=== PATIENT | male | born 1965 | race African-American/Black ===

== ENCOUNTER 2019-01-14 17:30 | Inpatient (IN) ==
[2019-01-14] MEDS ORDERED: METOPROLOL TARTRATE 5 MG/5 ML VIAL IV STA (18:07)
[2019-01-14] MEDS ORDERED: ONDANSETRON 4 MG/2 ML VIAL IV STA (18:07)
[2019-01-14] MEDS ORDERED: FUROSEMIDE 100 MG/10 ML VIAL IV STA (18:07)
[2019-01-14] MEDS ORDERED: MORPHINE 4 MG/1 ML VIAL IV STA (18:07)
[2019-01-14 18:18] LABS: Basophils % 0.5 % (0.0-0.8); Eosinophils # 0.2 10*3/uL (0.0-0.87); Eosinophils % 2.4 % (0.00-10.9); Hematocrit 41.9 VOL% (42.0-52.0); Hemoglobin 12.5 GM/DL (14.0-18.0); Immature Granulocytes % 0.5 %; Immature Granulocytes Absolute 0.03 #; Lymphocytes % 15.6 % (21.2-54.2); Mean Corpuscular HGB Conc 29.8 GM/DL (32-36); Mean Corpuscular Volume 84.3 FL (87-102); Monocytes % 7.4 % (1.7-12.7); Neutrophils % 73.6 % (38.7-73.9); Platelet Count 228 T/CUMM (130-400); Red Blood Count 4.97 MC/CUMM (3.8-5.5); White Blood Count 6.6 T/CUMM (4-12)
[2019-01-14 18:33] LABS: PT Patient Result 10.7 SECS
[2019-01-14 18:40] LABS: Albumin 3.4 G/DL (3.4-5.0); Bilirubin,Total 0.8 MG/DL (0.2-1.0); Calcium 8.9 MG/DL (8.5-10.1); Osmolality,Calculated 281.3 MOS/KG (273-304); Total Protein 7.6 G/DL (6.4-8.3)
[2019-01-14] MEDS ORDERED: POTASSIUM CHLORIDE 20 MEQ TABLET PO STA (19:01)
[2019-01-14 19:02] LABS: Apearance,Urine CLEAR (Clear); Bilirubin,Urine Negative (Negative); Blood, Urine Negative (Negative); Glucose,Urine (UA) Negative (Negative); Hyaline Casts,Urine 3 /LPF (0-3); Ketones,Urine Negative (Negative); Mucus,Urine Occasional /LPF (Occasional); Nitrite,Urine Negative (Negative); Protein,Urine Negative; RBC,Urine 3 /HPF (0-4); Squamous Epithelial Cell,Urine Occasional /HPF (0-10); Urine Color Yellow (Yellow); Urine Specific Gravity 1.026 (1.001-1.035); Urine Urobilinogen < 2.0 EU/DL (0.2-1.0); WBC,Urine 2 /HPF (0-6)
[2019-01-14 19:05] LABS: Barbiturates Screen,Urine Negative (Negative); Benzodiazepines Screen,Urine Negative (Negative); Cannabinoid Screen,Urine Negative (Negative); Opiate Screen,Urine Negative (Negative); Phencyclidine Screen,Urine Negative (Negative)
[2019-01-14] MEDS ORDERED: MORPHINE 4 MG/1 ML VIAL IV PRN (23:13)
[2019-01-14] MEDS ORDERED: diphenhydrAMINE CAP 25 MG CAPSULE PO PRN (23:13)
[2019-01-14] MEDS ORDERED: BISACODYL 5 MG TABLET PO PRN (23:13)
[2019-01-14] MEDS ORDERED: ACETAMINOPHEN 325 MG TABLET PO PRN (23:13)
[2019-01-14] MEDS ORDERED: NICOTINE 21 MG/24 HR PATCH TRANSDERM PRN (23:13)
[2019-01-14] MEDS ORDERED: ONDANSETRON 4 MG/2 ML VIAL IV PRN (23:13)
[2019-01-14] MEDS ORDERED: guaiFENesin/DM ER 600-30 MG TABLET PO PRN (23:13)
[2019-01-15] MEDS ORDERED: CETIRIZINE 10 MG TABLET PO PRN (01:37)
[2019-01-15] MEDS: TAMSULOSIN 0.4 MG CAPSULE PO SCH ×2 (01:54→21:07)
[2019-01-15] MEDS: FLUoxetine 20 MG CAPSULE PO SCH ×2 (01:54→21:08)
[2019-01-15] MEDS: METOPROLOL SUCCINATE XL 100 MG TABLET PO SCH ×2 (01:54→21:08)
[2019-01-15 05:15] LABS: Albumin 2.9 G/DL (3.4-5.0); Bilirubin,Total 1.2 MG/DL (0.2-1.0); Calcium 8.9 MG/DL (8.5-10.1); Osmolality,Calculated 282.1 MOS/KG (273-304); Total Protein 7.1 G/DL (6.4-8.3)
[2019-01-15] MEDS: POTASSIUM CHLORIDE 20 MEQ TABLET PO PRN ×6 (06:31→21:07)
[2019-01-15] MEDS: LOSARTAN 50 MG TABLET PO SCH (09:33)
[2019-01-15] MEDS: FUROSEMIDE 40 MG/4 ML VIAL IV SCH ×2 (09:34→16:46)
[2019-01-15] MEDS: PANTOPRAZOLE 40 MG TABLET PO SCH (09:34)
[2019-01-15] MEDS: CHLORTHALIDONE 25 MG TABLET PO SCH (09:34)
[2019-01-15] MEDS: FAMOTIDINE 20 MG TABLET PO SCH (09:34)
[2019-01-15] MEDS: ASPIRIN EC 81 MG TABLET PO SCH (09:34)
[2019-01-16 04:03] LABS: Calcium 8.9 MG/DL (8.5-10.1); Osmolality,Calculated 279.4 MOS/KG (273-304)
[2019-01-16] MEDS: POTASSIUM CHLORIDE 20 MEQ TABLET PO PRN ×7 (05:07→23:40)
[2019-01-16] MEDS: FAMOTIDINE 20 MG TABLET PO SCH (08:43)
[2019-01-16] MEDS: CHLORTHALIDONE 25 MG TABLET PO SCH (08:43)
[2019-01-16] MEDS: LOSARTAN 50 MG TABLET PO SCH (08:43)
[2019-01-16] MEDS: ASPIRIN EC 81 MG TABLET PO SCH (08:43)
[2019-01-16] MEDS: FUROSEMIDE 40 MG/4 ML VIAL IV SCH ×2 (08:44→15:30)
[2019-01-16] MEDS: PANTOPRAZOLE 40 MG TABLET PO SCH (08:44)
[2019-01-16] MEDS ORDERED: SPIRONOLACTONE 25 MG TABLET PO SCH (09:00)
[2019-01-16] MEDS: POTASSIUM CHLORIDE RIDER 10 MEQ in PREMIX 1 EACH IV SCH ×2 (15:02→15:03)
[2019-01-16] MEDS: FLUoxetine 20 MG CAPSULE PO SCH (21:41)
[2019-01-16] MEDS: TAMSULOSIN 0.4 MG CAPSULE PO SCH (21:43)
[2019-01-16] MEDS: METOPROLOL SUCCINATE XL 100 MG TABLET PO SCH (21:43)
[2019-01-17] MEDS: POTASSIUM CHLORIDE 20 MEQ TABLET PO PRN ×6 (01:56→21:43)
[2019-01-17 05:59] LABS: Calcium 9.1 MG/DL (8.5-10.1); Osmolality,Calculated 273.8 MOS/KG (273-304)
[2019-01-17] MEDS: FAMOTIDINE 20 MG TABLET PO SCH (08:39)
[2019-01-17] MEDS: FUROSEMIDE 40 MG/4 ML VIAL IV SCH (08:40)
[2019-01-17] MEDS: ASPIRIN EC 81 MG TABLET PO SCH (08:40)
[2019-01-17] MEDS: LOSARTAN 50 MG TABLET PO SCH (08:40)
[2019-01-17] MEDS: PANTOPRAZOLE 40 MG TABLET PO SCH (08:40)
[2019-01-17] MEDS: POTASSIUM CHLORIDE 20 MEQ TABLET PO SCH (13:59)
[2019-01-17] MEDS: SPIRONOLACTONE 25 MG TABLET PO SCH (14:00)
[2019-01-17] MEDS: FUROSEMIDE 80 MG TABLET PO SCH (15:19)
[2019-01-17] MEDS: FLUoxetine 20 MG CAPSULE PO SCH (21:28)
[2019-01-17] MEDS: TAMSULOSIN 0.4 MG CAPSULE PO SCH (21:28)
[2019-01-17] MEDS: METOPROLOL SUCCINATE XL 100 MG TABLET PO SCH (21:28)
[2019-01-18 06:00] LABS: Calcium 9.3 MG/DL (8.5-10.1); Osmolality,Calculated 278.7 MOS/KG (273-304)
[2019-01-18] MEDS: LOSARTAN 50 MG TABLET PO SCH (09:08)
[2019-01-18] MEDS: PANTOPRAZOLE 40 MG TABLET PO SCH (09:08)
[2019-01-18] MEDS: FUROSEMIDE 80 MG TABLET PO SCH ×2 (09:09→16:34)
[2019-01-18] MEDS: POTASSIUM CHLORIDE 20 MEQ TABLET PO SCH (09:09)
[2019-01-18] MEDS: ASPIRIN EC 81 MG TABLET PO SCH (09:09)
[2019-01-18] MEDS: SPIRONOLACTONE 25 MG TABLET PO SCH (09:09)
[2019-01-18] MEDS: FAMOTIDINE 20 MG TABLET PO SCH (09:09)
[2019-01-18] MEDS ORDERED: ceFAZolin 2,000 MG in SYRINGE 1 EACH IV SCH (13:00)
[2019-01-18] MEDS: ENOXAPARIN 60 MG/0.6 ML SYRINGE SUBCUT SCH (13:46)
[2019-01-18] MEDS ORDERED: TUBERCULIN SKIN TEST 0.1 ML SYRINGE INTRADERM ONE (16:23)
[2019-01-18] MEDS: TAMSULOSIN 0.4 MG CAPSULE PO SCH (21:26)
[2019-01-18] MEDS: METOPROLOL SUCCINATE XL 100 MG TABLET PO SCH (21:27)
[2019-01-18] MEDS: FLUoxetine 20 MG CAPSULE PO SCH (21:27)
[2019-01-19] MEDS ORDERED: ceFAZolin 2,000 MG in SYRINGE 1 EACH IV SCH
[2019-01-19] MEDS: FAMOTIDINE 20 MG TABLET PO SCH (09:01)
[2019-01-19] MEDS: FUROSEMIDE 80 MG TABLET PO SCH ×2 (09:02→16:20)
[2019-01-19] MEDS: LOSARTAN 50 MG TABLET PO SCH (09:02)
[2019-01-19] MEDS: SPIRONOLACTONE 25 MG TABLET PO SCH (09:02)
[2019-01-19] MEDS: ASPIRIN EC 81 MG TABLET PO SCH (09:02)
[2019-01-19] MEDS: PANTOPRAZOLE 40 MG TABLET PO SCH (09:02)
[2019-01-19] MEDS: POTASSIUM CHLORIDE 20 MEQ TABLET PO SCH (09:03)
[2019-01-19] MEDS: ENOXAPARIN 60 MG/0.6 ML SYRINGE SUBCUT SCH (11:48)
[2019-01-19] MEDS: METOPROLOL SUCCINATE XL 100 MG TABLET PO SCH (22:20)
[2019-01-19] MEDS: FLUoxetine 20 MG CAPSULE PO SCH (22:20)
[2019-01-19] MEDS: TAMSULOSIN 0.4 MG CAPSULE PO SCH (22:20)
[2019-01-19 23:21] LABS: Troponin I < 0.015 NG/ML (0.00-0.045)
[2019-01-20] MEDS: PANTOPRAZOLE 40 MG TABLET PO SCH (08:38)
[2019-01-20] MEDS: FUROSEMIDE 80 MG TABLET PO SCH ×2 (08:38→16:48)
[2019-01-20] MEDS: FAMOTIDINE 20 MG TABLET PO SCH (08:38)
[2019-01-20] MEDS: ASPIRIN EC 81 MG TABLET PO SCH (08:38)
[2019-01-20] MEDS: LOSARTAN 50 MG TABLET PO SCH (08:38)
[2019-01-20] MEDS: ENOXAPARIN 40 MG/0.4 ML SYRINGE SUBCUT SCH ×2 (08:38→21:26)
[2019-01-20] MEDS: POTASSIUM CHLORIDE 20 MEQ TABLET PO SCH (08:38)
[2019-01-20] MEDS: SPIRONOLACTONE 25 MG TABLET PO SCH (08:38)
[2019-01-20] MEDS ORDERED: POLYETHYLENE GLYCOL POWDER 255 GM BOTTLE PO ONE (10:30)
[2019-01-20] MEDS: FLUoxetine 20 MG CAPSULE PO SCH (21:27)
[2019-01-20] MEDS: METOPROLOL SUCCINATE XL 100 MG TABLET PO SCH (21:27)
[2019-01-20] MEDS: TAMSULOSIN 0.4 MG CAPSULE PO SCH (21:27)
[2019-01-21] MEDS ORDERED: FUROSEMIDE 40 MG/4 ML VIAL IV ONE (08:19)
[2019-01-21] MEDS: FAMOTIDINE 20 MG TABLET PO SCH (08:58)
[2019-01-21] MEDS: SPIRONOLACTONE 25 MG TABLET PO SCH (08:58)
[2019-01-21] MEDS: ASPIRIN EC 81 MG TABLET PO SCH (08:58)
[2019-01-21] MEDS: POTASSIUM CHLORIDE 20 MEQ TABLET PO SCH (08:59)
[2019-01-21] MEDS: LOSARTAN 50 MG TABLET PO SCH (08:59)
[2019-01-21] MEDS: ENOXAPARIN 40 MG/0.4 ML SYRINGE SUBCUT SCH ×2 (08:59→20:45)
[2019-01-21] MEDS: PANTOPRAZOLE 40 MG TABLET PO SCH (08:59)
[2019-01-21] MEDS: FUROSEMIDE 80 MG TABLET PO SCH ×2 (08:59→16:53)
[2019-01-21] MEDS: TAMSULOSIN 0.4 MG CAPSULE PO SCH (20:45)
[2019-01-21] MEDS: FLUoxetine 20 MG CAPSULE PO SCH (20:45)
[2019-01-21] MEDS: METOPROLOL SUCCINATE XL 100 MG TABLET PO SCH (20:45)
[2019-01-22] MEDS: ASPIRIN EC 81 MG TABLET PO SCH (08:44)
[2019-01-22] MEDS: FAMOTIDINE 20 MG TABLET PO SCH (08:44)
[2019-01-22] MEDS: FUROSEMIDE 80 MG TABLET PO SCH ×2 (08:45→16:45)
[2019-01-22] MEDS: ENOXAPARIN 40 MG/0.4 ML SYRINGE SUBCUT SCH (08:45)
[2019-01-22] MEDS: LOSARTAN 50 MG TABLET PO SCH (08:45)
[2019-01-22] MEDS: SPIRONOLACTONE 25 MG TABLET PO SCH (08:45)
[2019-01-22] MEDS: POTASSIUM CHLORIDE 20 MEQ TABLET PO SCH (08:45)
[2019-01-22] MEDS: PANTOPRAZOLE 40 MG TABLET PO SCH (08:45)
[2019-01-22 12:22] VITALS: BP 110/71
== END 2019-01-22 16:47 | DRG 292 ==
LOC: EDBD → EDUNIT# → N.EDINP 17:30 → N.ED 17:30 → SUATTDRO 22:56 → N.TELES 01-15 00:15
PROVIDERS: ATTEND Internal Medicine

== ENCOUNTER 2021-02-24 19:14 | Inpatient (IN) ==
[2021-02-24 22:49] LABS: Basophils % 0.4 % (0.0-0.8); Eosinophils # 0.3 10*3/uL (0.0-0.87); Eosinophils % 3.6 % (0.00-10.9); Hematocrit 37.9 VOL% (42.0-52.0); Hemoglobin 11.4 GM/DL (14.0-18.0); Immature Granulocytes % 0.3 %; Immature Granulocytes Absolute 0.02 #; Lymphocytes # 1.3 10*3/uL (1.4-4.0); Lymphocytes % 18.1 % (21.2-54.2); Mean Corpuscular HGB Conc 30.1 GM/DL (32-36); Mean Corpuscular Volume 87.3 FL (87-102); Mean Platelet Volume 12.1 FL (9.6-12.0); Monocytes % 7.8 % (1.7-12.7); Neutrophils % 69.8 % (38.7-73.9); Platelet Count 203 T/CUMM (130-400); Red Blood Count 4.34 MC/CUMM (3.8-5.5); Red Cell Distribution Width 14.5 % (9.3-17.3); White Blood Count 7.2 T/CUMM (4-12)
[2021-02-24] MEDS ORDERED: SODIUM CHLORIDE 0.9% 1,000 ML IV SCH (23:00)
[2021-02-24] MEDS ORDERED: cefTRIAXone 1,000 MG in SODIUM CHLORIDE 0.9% 100 ML IV SCH (23:00)
[2021-02-24 23:01] LABS: Calcium 8.9 MG/DL (8.5-10.1); Potassium 3.6 MMOL/L (3.5-5.1)
[2021-02-24] MEDS ORDERED: POTASSIUM CHLORIDE 20 MEQ TABLET PO ONE (23:03)
[2021-02-25] MEDS ORDERED: AZITHROMYCIN INJ 500 MG in SODIUM CHLORIDE 0.9% 250 ML IV SCH
[2021-02-25] MEDS ORDERED: ACETAMINOPHEN 325 MG TABLET PO PRN (00:08)
[2021-02-25] MEDS ORDERED: diphenhydrAMINE CAP 25 MG CAPSULE PO PRN (00:08)
[2021-02-25] MEDS ORDERED: DEXTROSE 50% 25 GM/50 ML VIAL IV PRN (00:08)
[2021-02-25] MEDS ORDERED: ZALEPLON 5 MG CAPSULE PO PRN (00:08)
[2021-02-25] MEDS ORDERED: GLUCAGON 1 MG VIAL IM PRN (00:08)
[2021-02-25] MEDS ORDERED: hydrALAZINE 20 MG/1 ML VIAL IV PRN (00:08)
[2021-02-25] MEDS ORDERED: guaiFENesin/DM ER 600-30 MG TABLET PO PRN (00:08)
[2021-02-25] MEDS ORDERED: NICOTINE 21 MG/24 HR PATCH TRANSDERM PRN (00:08)
[2021-02-25] MEDS ORDERED: SODIUM CHLORIDE 0.9% 500 ML IV ONE (00:30)
[2021-02-25 01:19] LABS: Bilirubin,Urine Negative (Negative); Blood, Urine Negative (Negative); Glucose,Urine (UA) Negative (Negative); Ketones,Urine Negative (Negative); Mucus,Urine Occasional /LPF (Occasional); Nitrite,Urine Negative (Negative); Protein,Urine Negative; RBC,Urine 1 /HPF (0-4); Squamous Epithelial Cell,Urine Occasional /HPF (0-10); Urine Appearance CLEAR (Clear); Urine Color Yellow (Yellow); Urine Specific Gravity 1.012 (1.001-1.035); Urine Urobilinogen < 2.0 EU/DL (0.2-1.0)
[2021-02-25] MEDS: ALBUTEROL 2.5 MG/3 ML NEB RESP TX SCH ×4 (02:25→19:16)
[2021-02-25 05:35] LABS: ABG Base Excess 4.3 MMOL/L (-2.5-2.5); ABG HCO3 30.2 MMOL/L (20-26); ABG Oxygen Saturation 98.3 % (95-100); ABG PCO2 49.6 MM HG (35-48); ABG PH 7.402 (7.35-7.45); ABG PO2 118.8 MM HG (80-95); ABG TCO2 31.7 MMOL/L (23-27)
[2021-02-25 05:37] LABS: Basophils % 0.4 % (0.0-0.8); Eosinophils # 0.2 10*3/uL (0.0-0.87); Eosinophils % 3.6 % (0.00-10.9); Hematocrit 36.7 VOL% (42.0-52.0); Hemoglobin 11.7 GM/DL (14.0-18.0); Immature Granulocytes % 0.1 %; Immature Granulocytes Absolute 0.01 #; Lymphocytes # 1.2 10*3/uL (1.4-4.0); Lymphocytes % 17.3 % (21.2-54.2); Mean Corpuscular HGB Conc 31.9 GM/DL (32-36); Mean Platelet Volume 11.9 FL (9.6-12.0); Monocytes % 8.4 % (1.7-12.7); Neutrophils % 70.2 % (38.7-73.9); Platelet Count 207 T/CUMM (130-400); Red Blood Count 4.37 MC/CUMM (3.8-5.5); Red Cell Distribution Width 14.6 % (9.3-17.3); White Blood Count 6.7 T/CUMM (4-12)
[2021-02-25 05:59] LABS: Calcium 8.6 MG/DL (8.5-10.1); Osmolality,Calculated 301.3 MOS/KG (273-304); Potassium 3.2 MMOL/L (3.5-5.1)
[2021-02-25] MEDS: GABAPENTIN 100 MG CAPSULE PO SCH ×3 (09:30→21:13)
[2021-02-25] MEDS: CETIRIZINE 10 MG TABLET PO SCH (09:31)
[2021-02-25] MEDS: ASPIRIN EC 81 MG TABLET PO SCH (09:31)
[2021-02-25] MEDS: PANTOPRAZOLE 40 MG TABLET PO SCH (09:32)
[2021-02-25] MEDS: BISACODYL 5 MG TABLET PO SCH (09:32)
[2021-02-25] MEDS: FAMOTIDINE 20 MG TABLET PO SCH (09:33)
[2021-02-25] MEDS: ENOXAPARIN 40 MG/0.4 ML SYRINGE SUBCUT SCH (09:35)
[2021-02-25] MEDS: SODIUM CHLORIDE 0.9% 1,000 ML IV SCH (10:45)
[2021-02-25] MEDS: ONDANSETRON 4 MG/2 ML VIAL IV PRN (19:31)
[2021-02-25] MEDS ORDERED: TAMSULOSIN 0.4 MG CAPSULE PO SCH (21:00)
[2021-02-25] MEDS: FLUoxetine 20 MG CAPSULE PO SCH (21:13)
[2021-02-26] MEDS: ALBUTEROL 2.5 MG/3 ML NEB RESP TX SCH ×4 (00:31→19:40)
[2021-02-26] MEDS: SODIUM CHLORIDE 0.9% 1,000 ML IV SCH ×3 (01:16→16:44)
[2021-02-26] MEDS: ONDANSETRON 4 MG/2 ML VIAL IV PRN ×2 (03:41→19:59)
[2021-02-26 05:51] LABS: Basophils % 0.5 % (0.0-0.8); Eosinophils # 0.3 10*3/uL (0.0-0.87); Eosinophils % 4.5 % (0.00-10.9); Hematocrit 36.4 VOL% (42.0-52.0); Hemoglobin 10.9 GM/DL (14.0-18.0); Immature Granulocytes % 0.3 %; Immature Granulocytes Absolute 0.02 #; Lymphocytes % 17.1 % (21.2-54.2); Mean Corpuscular HGB Conc 29.9 GM/DL (32-36); Mean Corpuscular Volume 87.7 FL (87-102); Monocytes % 8.8 % (1.7-12.7); Neutrophils % 68.8 % (38.7-73.9); Platelet Count 196 T/CUMM (130-400); Red Blood Count 4.15 MC/CUMM (3.8-5.5); Red Cell Distribution Width 14.6 % (9.3-17.3)
[2021-02-26 06:10] LABS: Calcium 8.8 MG/DL (8.5-10.1); Osmolality,Calculated 292.1 MOS/KG (273-304); Potassium 3.9 MMOL/L (3.5-5.1)
[2021-02-26] MEDS: PANTOPRAZOLE 40 MG TABLET PO SCH (09:14)
[2021-02-26] MEDS: BISACODYL 5 MG TABLET PO SCH (09:14)
[2021-02-26] MEDS: FAMOTIDINE 20 MG TABLET PO SCH (09:14)
[2021-02-26] MEDS: CETIRIZINE 10 MG TABLET PO SCH (09:14)
[2021-02-26] MEDS: ENOXAPARIN 40 MG/0.4 ML SYRINGE SUBCUT SCH (09:15)
[2021-02-26] MEDS: GABAPENTIN 100 MG CAPSULE PO SCH ×3 (09:15→21:34)
[2021-02-26] MEDS: ASPIRIN EC 81 MG TABLET PO SCH (09:15)
[2021-02-26] MEDS: VANCOMYCIN INJ 2,000 MG in SODIUM CHLORIDE 0.9% 500 ML IV SCH (11:29)
[2021-02-26] MEDS: LUBIPROSTONE 8 MCG CAPSULE PO SCH ×2 (16:42→21:32)
[2021-02-26] MEDS: DICYCLOMINE 20 MG TABLET PO SCH ×2 (16:42→21:33)
[2021-02-26] MEDS: DOCUSATE SODIUM 100 MG CAPSULE PO SCH ×2 (16:42→21:33)
[2021-02-26] MEDS: POLYETHYLENE GLYCOL POWDER 17 GM PACK PO SCH ×2 (16:43→21:35)
[2021-02-26] MEDS: FLUoxetine 20 MG CAPSULE PO SCH (21:33)
[2021-02-27] MEDS: VANCOMYCIN INJ 2,000 MG in SODIUM CHLORIDE 0.9% 500 ML IV SCH ×3 (00:46→23:39)
[2021-02-27] MEDS: ALBUTEROL 2.5 MG/3 ML NEB RESP TX SCH ×4 (00:51→19:37)
[2021-02-27] MEDS: SODIUM CHLORIDE 0.9% 1,000 ML IV SCH (01:00)
[2021-02-27 05:37] LABS: Basophils % 0.3 % (0.0-0.8); Eosinophils # 0.3 10*3/uL (0.0-0.87); Eosinophils % 4.6 % (0.00-10.9); Hematocrit 35.6 VOL% (42.0-52.0); Hemoglobin 10.7 GM/DL (14.0-18.0); Immature Granulocytes % 0.1 %; Immature Granulocytes Absolute 0.01 #; Lymphocytes % 14.8 % (21.2-54.2); Mean Corpuscular HGB Conc 30.1 GM/DL (32-36); Mean Corpuscular Volume 88.1 FL (87-102); Mean Platelet Volume 11.5 FL (9.6-12.0); Monocytes % 8.6 % (1.7-12.7); Neutrophils % 71.6 % (38.7-73.9); Platelet Count 182 T/CUMM (130-400); Red Blood Count 4.04 MC/CUMM (3.8-5.5); Red Cell Distribution Width 14.5 % (9.3-17.3); White Blood Count 6.8 T/CUMM (4-12)
[2021-02-27 06:02] LABS: Calcium 8.7 MG/DL (8.5-10.1); Osmolality,Calculated 282.3 MOS/KG (273-304); Potassium 3.8 MMOL/L (3.5-5.1)
[2021-02-27 06:04] LABS: Risk Ratio 3.13; VLDL Cholesterol 10.2 MG/DL
[2021-02-27 06:07] LABS: Albumin 2.9 G/DL (3.4-5.0); Bilirubin,Total 2.1 MG/DL (0.20-1.00); Calcium 8.8 MG/DL (8.5-10.1); Osmolality,Calculated 284.1 MOS/KG (273-304); Potassium 3.9 MMOL/L (3.5-5.1); Total Protein 7.3 G/DL (6.4-8.2)
[2021-02-27] MEDS: ENOXAPARIN 40 MG/0.4 ML SYRINGE SUBCUT SCH (08:09)
[2021-02-27] MEDS: POLYETHYLENE GLYCOL POWDER 17 GM PACK PO SCH ×3 (08:11→22:32)
[2021-02-27] MEDS: LINACLOTIDE 145 MCG CAPSULE PO SCH (08:11)
[2021-02-27] MEDS: DOCUSATE SODIUM 100 MG CAPSULE PO SCH ×2 (08:12→22:35)
[2021-02-27] MEDS: FAMOTIDINE 20 MG TABLET PO SCH (08:12)
[2021-02-27] MEDS: GABAPENTIN 100 MG CAPSULE PO SCH ×3 (08:12→22:35)
[2021-02-27] MEDS: CETIRIZINE 10 MG TABLET PO SCH (08:13)
[2021-02-27] MEDS: DICYCLOMINE 20 MG TABLET PO SCH ×4 (08:13→22:36)
[2021-02-27] MEDS: PANTOPRAZOLE 40 MG TABLET PO SCH (08:13)
[2021-02-27] MEDS: LUBIPROSTONE 8 MCG CAPSULE PO SCH ×2 (08:13→22:34)
[2021-02-27] MEDS: METOPROLOL SUCCINATE XL 25 MG TABLET PO SCH (08:23)
[2021-02-27] MEDS: ASPIRIN EC 81 MG TABLET PO SCH (08:23)
[2021-02-27] MEDS: FLUoxetine 20 MG CAPSULE PO SCH (22:36)
[2021-02-28] MEDS: ALBUTEROL 2.5 MG/3 ML NEB RESP TX SCH ×4 (00:06→19:02)
[2021-02-28 06:18] LABS: Basophils % 0.7 % (0.0-0.8); Eosinophils # 0.3 10*3/uL (0.0-0.87); Eosinophils % 5.1 % (0.00-10.9); Hematocrit 35.9 VOL% (42.0-52.0); Hemoglobin 10.8 GM/DL (14.0-18.0); Immature Granulocytes % 0.3 %; Immature Granulocytes Absolute 0.02 #; Lymphocytes # 0.9 10*3/uL (1.4-4.0); Lymphocytes % 14.2 % (21.2-54.2); Mean Corpuscular HGB Conc 30.1 GM/DL (32-36); Mean Platelet Volume 11.2 FL (9.6-12.0); Monocytes % 7.9 % (1.7-12.7); Neutrophils % 71.8 % (38.7-73.9); Platelet Count 180 T/CUMM (130-400); Red Blood Count 4.08 MC/CUMM (3.8-5.5); Red Cell Distribution Width 14.4 % (9.3-17.3); White Blood Count 6.1 T/CUMM (4-12)
[2021-02-28 06:33] LABS: Calcium 8.6 MG/DL (8.5-10.1); Osmolality,Calculated 279.4 MOS/KG (273-304); Potassium 3.5 MMOL/L (3.5-5.1)
[2021-02-28 07:08] LABS: Albumin 2.9 G/DL (3.4-5.0); Bilirubin,Total 0.6 MG/DL (0.20-1.00); Calcium 8.5 MG/DL (8.5-10.1); Osmolality,Calculated 281.3 MOS/KG (273-304); Potassium 3.5 MMOL/L (3.5-5.1); Total Protein 7.2 G/DL (6.4-8.2)
[2021-02-28] MEDS: DOCUSATE SODIUM 100 MG CAPSULE PO SCH ×2 (09:26→21:42)
[2021-02-28] MEDS: POLYETHYLENE GLYCOL POWDER 17 GM PACK PO SCH ×2 (09:26→15:34)
[2021-02-28] MEDS: FAMOTIDINE 20 MG TABLET PO SCH (09:26)
[2021-02-28] MEDS: DICYCLOMINE 20 MG TABLET PO SCH ×4 (09:26→21:43)
[2021-02-28] MEDS: GABAPENTIN 100 MG CAPSULE PO SCH ×3 (09:26→21:43)
[2021-02-28] MEDS: ASPIRIN EC 81 MG TABLET PO SCH (09:27)
[2021-02-28] MEDS: LUBIPROSTONE 8 MCG CAPSULE PO SCH ×2 (09:27→21:42)
[2021-02-28] MEDS: LINACLOTIDE 145 MCG CAPSULE PO SCH (09:27)
[2021-02-28] MEDS: ENOXAPARIN 40 MG/0.4 ML SYRINGE SUBCUT SCH (09:27)
[2021-02-28] MEDS: CETIRIZINE 10 MG TABLET PO SCH (09:27)
[2021-02-28] MEDS: PANTOPRAZOLE 40 MG TABLET PO SCH (09:27)
[2021-02-28] MEDS: METOPROLOL SUCCINATE XL 25 MG TABLET PO SCH (09:30)
[2021-02-28] MEDS: FUROSEMIDE 40 MG TABLET PO SCH (11:50)
[2021-02-28] MEDS: ISOSORBIDE MONONITRATE 30 MG TABLET PO SCH (11:50)
[2021-02-28] MEDS: VANCOMYCIN INJ 2,000 MG in SODIUM CHLORIDE 0.9% 500 ML IV SCH (12:03)
[2021-02-28] MEDS: FLUoxetine 20 MG CAPSULE PO SCH (21:42)
[2021-03-01] MEDS: ALBUTEROL 2.5 MG/3 ML NEB RESP TX SCH ×3 (03:38→15:04)
[2021-03-01 05:55] LABS: Basophils % 0.5 % (0.0-0.8); Eosinophils # 0.3 10*3/uL (0.0-0.87); Eosinophils % 4.2 % (0.00-10.9); Hemoglobin 10.3 GM/DL (14.0-18.0); Immature Granulocytes % 0.4 %; Immature Granulocytes Absolute 0.03 #; Lymphocytes # 1.1 10*3/uL (1.4-4.0); Lymphocytes % 14.6 % (21.2-54.2); Mean Corpuscular HGB Conc 30.3 GM/DL (32-36); Mean Corpuscular Volume 87.6 FL (87-102); Mean Platelet Volume 11.4 FL (9.6-12.0); Monocytes % 9.4 % (1.7-12.7); Neutrophils % 70.9 % (38.7-73.9); Platelet Count 185 T/CUMM (130-400); Red Blood Count 3.88 MC/CUMM (3.8-5.5); Red Cell Distribution Width 14.4 % (9.3-17.3); White Blood Count 7.4 T/CUMM (4-12)
[2021-03-01 06:19] LABS: Calcium 8.7 MG/DL (8.5-10.1); Osmolality,Calculated 282.1 MOS/KG (273-304); Potassium 4.1 MMOL/L (3.5-5.1)
[2021-03-01] MEDS ORDERED: POLYETHYLENE GLYCOL POWDER 17 GM PACK PO SCH (09:00)
[2021-03-01] MEDS: GABAPENTIN 100 MG CAPSULE PO SCH ×2 (09:25→14:07)
[2021-03-01] MEDS: LINACLOTIDE 145 MCG CAPSULE PO SCH (09:25)
[2021-03-01] MEDS: ENOXAPARIN 40 MG/0.4 ML SYRINGE SUBCUT SCH (09:25)
[2021-03-01] MEDS: METOPROLOL SUCCINATE XL 25 MG TABLET PO SCH (09:26)
[2021-03-01] MEDS: ASPIRIN EC 81 MG TABLET PO SCH (09:26)
[2021-03-01] MEDS: DOCUSATE SODIUM 100 MG CAPSULE PO SCH (09:26)
[2021-03-01] MEDS: PANTOPRAZOLE 40 MG TABLET PO SCH (09:26)
[2021-03-01] MEDS: LUBIPROSTONE 8 MCG CAPSULE PO SCH (09:26)
[2021-03-01] MEDS: FUROSEMIDE 40 MG TABLET PO SCH (09:26)
[2021-03-01] MEDS: DICYCLOMINE 20 MG TABLET PO SCH ×2 (09:26→14:07)
[2021-03-01] MEDS: FAMOTIDINE 20 MG TABLET PO SCH (09:26)
[2021-03-01] MEDS: ISOSORBIDE MONONITRATE 30 MG TABLET PO SCH (09:26)
[2021-03-01] MEDS: CETIRIZINE 10 MG TABLET PO SCH (09:26)
[2021-03-01 11:05] VITALS: BP 120/59
== END 2021-03-01 15:14 | disposition home health service (06) | DRG 312 ==
LOC: N.TELEN
PROVIDERS: ADMIT Hospitalist; ATTEND Hospitalist

== ENCOUNTER 2022-03-04 11:05 | Observation (INO) ==
[2022-03-04] MEDS ORDERED: DILTIAZEM 25 MG/5 ML VIAL IV STA ×2 (11:54→14:41)
[2022-03-04] MEDS ORDERED: ASPIRIN 325 MG TABLET PO STA (12:48)
[2022-03-04] MEDS ORDERED: NITROGLYCERIN SL 0.4 MG TABLET SL PRN (12:48)
[2022-03-04 13:04] LABS: Calcium 9.1 MG/DL (8.5-10.1); Osmolality,Calculated 287.8 MOS/KG (273-304); Potassium 3.8 MMOL/L (3.5-5.1)
[2022-03-04 13:16] LABS: Basophils % 0.4 % (0.0-0.8); Eosinophils # 0.1 10*3/uL (0.0-0.87); Eosinophils % 3.1 % (0.00-10.9); Hematocrit 47.3 VOL% (42.0-52.0); Hemoglobin 14.3 GM/DL (14.0-18.0); Immature Granulocytes % 0.4 %; Immature Granulocytes Absolute 0.02 #; Lymphocytes # 1.1 10*3/uL (1.4-4.0); Lymphocytes % 24.8 % (21.2-54.2); Mean Corpuscular HGB Conc 30.2 GM/DL (32-36); Mean Corpuscular Volume 85.4 FL (87-102); Mean Platelet Volume 12.5 FL (9.6-12.0); Monocytes # 0.4 10*3/uL (0.11-0.8); Monocytes % 8.6 % (1.7-12.7); Neutrophils % 62.7 % (38.7-73.9); Platelet Count 203 T/CUMM (130-400); Red Blood Count 5.54 MC/CUMM (3.8-5.5); Red Cell Distribution Width 14.6 % (9.3-17.3); White Blood Count 4.5 T/CUMM (4-12)
[2022-03-04] MEDS: DILTIAZEM INJ 100 MG in SODIUM CHLORIDE 0.9% 100 ML IV SCH (14:45)
[2022-03-04] MEDS ORDERED: DILTIAZEM CD 120 MG CAPSULE PO STA (15:07)
[2022-03-04] MEDS ORDERED: ACETAMINOPHEN 325 MG TABLET PO PRN (15:59)
[2022-03-04] MEDS ORDERED: ONDANSETRON 4 MG/2 ML VIAL IV PRN (15:59)
[2022-03-04] MEDS ORDERED: GLUCAGON 1 MG VIAL IM PRN (15:59)
[2022-03-04] MEDS ORDERED: DEXTROSE 10% 250 ML BAG IV PRN (16:12)
[2022-03-04] MEDS: PANTOPRAZOLE 40 MG TABLET PO SCH (16:40)
[2022-03-04] MEDS ORDERED: APIXABAN 5 MG TABLET PO SCH (21:00)
[2022-03-05 06:04] LABS: Albumin 2.7 G/DL (3.4-5.0); Bilirubin,Total 0.7 MG/DL (0.20-1.00); Calcium 9.1 MG/DL (8.5-10.1); Osmolality,Calculated 280.3 MOS/KG (273-304); Potassium 3.3 MMOL/L (3.5-5.1); Risk Ratio 4.06; VLDL Cholesterol 13.8 MG/DL
[2022-03-05] MEDS ORDERED: POTASSIUM CHLORIDE 20 MEQ TABLET PO ONE (07:15)
[2022-03-05] MEDS: PANTOPRAZOLE 40 MG TABLET PO SCH (09:00)
[2022-03-05] MEDS: METOPROLOL SUCCINATE XL 50 MG TABLET PO SCH (09:00)
[2022-03-05] MEDS ORDERED: DILTIAZEM CD 120 MG CAPSULE PO SCH (09:00)
[2022-03-05] MEDS: RIVAROXABAN 20 MG TABLET PO SCH (09:05)
[2022-03-05] MEDS: DILTIAZEM INJ 100 MG in SODIUM CHLORIDE 0.9% 100 ML IV SCH (12:26)
[2022-03-05] MEDS: DILTIAZEM CD 120 MG CAPSULE PO SCH (12:44)
[2022-03-05 18:58] LABS: Bacteria,Urine Occasional /HPF (Few); Mucus,Urine Occasional /LPF (Occasional); RBC,Urine 1 /HPF (0-4); Squamous Epithelial Cell,Urine Occasional /HPF (0-10)
[2022-03-05 19:04] LABS: Protein,Urine Negative (Negative); Urine Appearance Clear (Clear); Urine Color Yellow (Yellow); Urine Specific Gravity 1.025 (1.001-1.035)
[2022-03-05 19:05] LABS: Bilirubin,Urine Small mg/dL (Negative); Blood, Urine Negative (Negative); Glucose,Urine (UA) Negative (Negative); Ketones,Urine Negative (Negative); Nitrite,Urine Negative (Negative); Urine Urobilinogen 0.2 eU/dL (<2.0)
[2022-03-06 05:34] LABS: Calcium 8.8 MG/DL (8.5-10.1); Potassium 3.7 MMOL/L (3.5-5.1)
[2022-03-06 05:47] LABS: Basophils % 0.8 % (0.0-0.8); Eosinophils # 0.3 10*3/uL (0.0-0.87); Immature Granulocytes % 0.2 %; Immature Granulocytes Absolute 0.01 #; Lymphocytes # 1.6 10*3/uL (1.4-4.0); Lymphocytes % 30.5 % (21.2-54.2); Mean Corpuscular HGB Conc 30.2 GM/DL (32-36); Mean Corpuscular Volume 85.3 FL (87-102); Monocytes # 0.5 10*3/uL (0.11-0.8); Monocytes % 9.1 % (1.7-12.7); Neutrophils % 54.4 % (38.7-73.9); Platelet Count 185 T/CUMM (130-400); Red Blood Count 5.16 MC/CUMM (3.8-5.5); Red Cell Distribution Width 14.5 % (9.3-17.3); White Blood Count 5.2 T/CUMM (4-12)
[2022-03-06 05:48] LABS: Hemoglobin 13.3 GM/DL (14.0-18.0)
[2022-03-06] MEDS: RIVAROXABAN 20 MG TABLET PO SCH (09:23)
[2022-03-06] MEDS: DILTIAZEM CD 120 MG CAPSULE PO SCH (09:23)
[2022-03-06] MEDS: PANTOPRAZOLE 40 MG TABLET PO SCH (09:23)
[2022-03-06] MEDS: METOPROLOL SUCCINATE XL 50 MG TABLET PO SCH (09:24)
[2022-03-06 12:53] VITALS: BP 129/87
== END 2022-03-06 16:52 | disposition home health service (06) ==
LOC: EDUNIT# → EDBD → N.ED 11:05 → N.EDINP 11:05 → SUATTDRO 15:59 → N.TELEN 19:04
PROVIDERS: ADMIT Internal Medicine; ATTEND Internal Medicine